=== PATIENT | female | born 1960 | race Caucasian/White ===

== ENCOUNTER 2018-03-27 19:24 | Emergency (ER) | payer OTHER ==
[~2018-03-27] VITALS: Ht 160 cm; Wt 115.1 kg
[~2018-03-27 19:24] MED LIST: ANTIVERT25 MG PO; ASMANEX TW200 MICRO1 IH; ASPIRIN EC325 MG PO; BENADRYL25 MG PO; BUSPAR10 MG PO; BYETTA PEN250 MCG/M1 SC; CALTRATE PLUS1 EACH PO; CLARITIN10 M3 PO; CLEOCIN300 MG PO; COLACE100 MG PO; CYMBALTA60 MG PO; DESYREL 150 MG150 MG PO; DEXILANT30 MG PO; DILAUDID2 MG PO; DULERA 200 MCG/13 GM IH; ENDOCET 5-3251 EACH PO; FEOSOL325 MG PO; FLEXERIL5 MG PO; FOLIC ACID0.4 MG PO; FOLIC ACID0.8 MG PO; GABAPENTIN600 MG PO; HYDROCODON-ACE1 EAC7 PO; IMITREX100 MG PO; IMITREX6 MG/0.5 M SC; K-DUR20 MEQ PO; LASIX40 MG PO; LIDOCAINE20 MG/1 M5 PO; MEDROL DOSEPAK4 MG PO; MELATONIN1 MG PO; METFORMIN HCL500 MG PO; MIRALAX17 GM PO; NABUMETONE500 MG PO; NEURONTIN300 MG PO; NIZORAL 2% CREA15 GM TP; OMEPRAZOLE20 M2 PO; PERCOCET 5/31 TABLET PO; POTASSIUM20 MEQ/11 PO; PROAIR HFA8.5 GM IH; PROMETHAZINE HC25 M1 PO; ROBAXIN500 MG PO; SALINE NOSE SPR45 M1 BOTH NARES; SENOKOT S,PE1 TABLET PO; SINGULAIR10 MG PO; TRAMADOL HCL50 MG PO; TRAVATAN Z5 ML BOTH EYES; VALIUM5 MG PO; VITAMIN B-122500 MCG SL; VITAMIN D250000 UNIT PO; VITAMIN D32000 UNI1 PO; VOLTAREN 1% GE100 GM TP
[2018-03-27 19:29] VITALS: BP 203/109
== END 2018-03-27 21:25 | disposition home or self-care (01) ==
LOC: EME 19:24
PROC: 0HQ1XZZ Repair Face Skin, External Approach (ICD-10-PCS; principal; 2018-03-27)
DX: S01.81XA Laceration without foreign body of other part of head, initial encounter (principal); S06.0X0A Concussion without loss of consciousness, initial encounter; W18.30XA Fall on same level, unspecified, initial encounter; Y92.002 Bathroom of unspecified non-institutional (private) residence as the place of occurrence of the external cause; Z91.040 Latex allergy status; Z88.1 Allergy status to other antibiotic agents
CPT/HCPCS: 70450; 70486; 99281; 99283